=== PATIENT | female | born 2000 | race African-American/Black ===

== ENCOUNTER 2020-04-30 16:36 | Inpatient (IN) | payer OTHER | END 2020-04-30 16:51 | disposition home or self-care (01) | DRG 305 | LOC: MEDJ 16:36 → OB/GYN 16:36 → EDSEX 16:51 → EDBD 16:51 → OB/GYN 05-01 16:33 | PROC: 4A12X4Z Monitoring of Cardiac Electrical Activity, External Approach (ICD-10-PCS; principal; 2020-04-30) | PROC: B246ZZZ Ultrasonography of Right and Left Heart (ICD-10-PCS; 2020-04-30) | DX: I11.9 Hypertensive heart disease without heart failure (principal); I16.1 Hypertensive emergency ==

== ENCOUNTER 2020-05-27 11:02 | Inpatient (IN) | payer OTHER | END 2020-05-27 11:06 | disposition home or self-care (01) | DRG 305 | LOC: OB/GYN 11:02 → EDBD 11:06 → OB/GYN 11:06 | DX: I11.9 Hypertensive heart disease without heart failure (principal) ==

== ENCOUNTER 2020-10-15 15:54 | Emergency (ER) | payer OTHER | END 2020-10-15 16:35 | disposition left against medical advice (07) | LOC: ER 15:54 → EDBD 15:56 → ER 16:35 | DX: Z53.20 Procedure and treatment not carried out because of patient's decision for unspecified reasons (principal) ==

== ENCOUNTER → 2021-04-01 | Emergency (ER) | payer OTHER | END | disposition left against medical advice (07) | LOC: ER 03-31 10:45 | DX: Z53.20 Procedure and treatment not carried out because of patient's decision for unspecified reasons (principal) ==